=== PATIENT | female | born 2000 | race Two or more races ===

== ENCOUNTER 2019-10-27 09:30 | Outpatient (AMBR) | payer MEDICAID, SELFPAY ==
--- NOTE | 2019-10-14 15:39 | PT.ODAYNRPT ---
PT Outpatient Daily Note Date of Service: October 14, 2019 OP Daily Note Visit Reasons: thoracic pain Outpatient Physical Therapy Treatment Date: 10/14/19 Subjective: Pt's back feels good no pain today. Objective: Please see flow chart for list of ther ex performed Assessment: added more stretch with minimal limitation Plan: Continue with PT Length of Time (minutes) of Treatment: 30 Minutes Office Procedures PT Procedures PT Date of Service: 10/14/19 Therapeutic Exercise 30 minutes: Yes
--- NOTE | 2019-10-20 10:14 | PT.ODAYNRPT ---
PT Outpatient Daily Note Date of Service: October 20, 2019 OP Daily Note Visit Reasons: thoracic pain Outpatient Physical Therapy Treatment Date: 10/20/19 Subjective: pt states her back feeling ok upon visit. Objective: see flow sheet. Assessment: added new exercise to activate the mid back using thera band in medium resistance. pt performed with good understanding of the exercise. no complaints during treatment. noted good ROM of the hip during stretch with good quad activation. she was able to get on and off the bed on her own with no difficulty. Plan: continued POC per PT. Length of Time (minutes) of Treatment: 30 Minutes Office Procedures PT Procedures PT Date of Service: 10/14/19 Therapeutic Exercise 30 minutes: Yes PT Procedures PT Date of Service: 10/20/19 Therapeutic Exercise 30 minutes: Yes
--- NOTE | 2019-10-24 13:08 | PT.ODAYNRPT ---
PT Outpatient Daily Note Date of Service: October 24, 2019 OP Daily Note Visit Reasons: thoracic pain Outpatient Physical Therapy Treatment Date: 10/24/19 Subjective: Pt's back feels good no pain. Objective: Please see flow chart for list of ther ex performed Assessment: added more core exercises with good tolerance. slight cues to correct pelvis with QL stretch Plan: Continue with PT Length of Time (minutes) of Treatment: 30 Minutes Office Procedures PT Procedures PT Date of Service: 10/14/19 Therapeutic Exercise 30 minutes: Yes PT Procedures PT Date of Service: 10/20/19 Therapeutic Exercise 30 minutes: Yes PT Procedures PT Date of Service: 10/24/19 Therapeutic Exercise 30 minutes: Yes
--- NOTE | 2019-10-27 10:52 | PT.ODS1RPT ---
PT OP Progress/Discharge Note Date of Service: October 27, 2019 Progress Note/DC Note Progress Note/Discharge Note: DC Note Patient Information Visit Reasons: thoracic pain Medical Diagnosis: M54.5; M54.6 Treatment Dx #1: Mid Back Pain Treatment Dx #2: Low Back Pain Service Continue Service or Discharge: Discharge Discharge Date: 10/27/19 Status Subjective: Pt mention that her back is better. Pt has been able to sit, stand, walk, perform gym activities, and normal ADLs with less limitation. Pt mention that at this time Pt feels comfortable being release from physical therapy with exercises to continue at home. Objective: L/S AROM: all motions are WNL T/S AROM: all motions are WNL Scapula MMTs: grossly 3+/5 Hip PROM: all motions are WNL Hip MMTs Glute Med: 3+/5 Glute Max: 3+/5 Muscle Length: WNL Hs length Assessment: Pt demonstrate functional mobility and core strength allowing her to resume normal ADLs, chores, gym activities, and ambulation with less difficult. Pt will no longer benefit from physical therapy due to meeting all set goals with no further back pain. Pt was instructed on HEP last session and educated to continue to maintain overall mobility. Pt performed all exercises safely, thank you for your referrals. Plan: D/C home with HEP and follow up with PCP PRN Office Procedures PT Procedures PT Date of Service: 10/14/19 Therapeutic Exercise 30 minutes: Yes PT Procedures PT Date of Service: 10/20/19 Therapeutic Exercise 30 minutes: Yes PT Procedures PT Date of Service: 10/24/19 Therapeutic Exercise 30 minutes: Yes PT Procedures PT Date of Service: 10/27/19 Therapeutic Exercise 30 minutes: Yes
== END 2019-11-11 23:59 | disposition home or self-care (01) ==
PROVIDERS: PCP Family Medicine; Referring Provider Family Medicine; Visit Provider Physician Assistant
DX: M54.5 Low back pain (principal); M54.6 Pain in thoracic spine
CPT/HCPCS: 97110